=== PATIENT | male | born 1985 | race Caucasian/White ===

== ENCOUNTER 2017-03-05 00:29 | Emergency (ER) | payer MEDICARE ==
[~2017-03-05] VITALS: Ht 180.3 cm; Wt 78.0 kg
[2017-03-05 00:31] VITALS: BP 140/86; PULSE 107; RESP 16; TEMP 98; O2SAT 95
[2017-03-05] MEDS ORDERED: NAPROXEN 500 MG TAB PO ONE (00:45)
[2017-03-05] MEDS ORDERED: CYCLOBENZAPRINE HCL 10 MG TAB PO ONE (00:45)
[2017-03-05] MEDS ORDERED: CYCL1TAB29 PO (00:46)
[2017-03-05] MEDS ORDERED: DICL75TA PO (00:46)
[2017-03-05] MEDS ORDERED: RISP4TAB41 PO (00:53)
--- NOTE | 2017-03-05 00:57 | PD ---
HPI Chief Complaint: Back/ Neck Pain or Injury Time Seen by Provider: 00:54 Travel History International Travel<30 days: No Contact w/Intl Traveler<30days: No Traveled to known affect area: No History of Present Illness HPI 31-year-old white male presents to emergency Department with complaints of lower back pain for the past month. He states the pain is progressively getting worse. He states that he had back pain in the past he has not had a to this degree. 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 The patient reports drinking 6-9 beers a day to help with the pain. He states that he's been medicating himself with alcohol but this evening now is not helping. He denies any direct trauma. No acute bowel or bladder changes. He states the pain is more in the lower back on the right side. No recent illness. No focal numbness, tingling or weakness. PFSH Past Medical History Medical History: Denies Significant Hx Tetanus Vaccination: < 5 Years Past Surgical History Surgical History: No Previous Surgery Social History Alcohol Use: Yes Tobacco Use: Yes Allergies-Medications (Allergen,Severity, Reaction): Coded Allergies: No Known Allergies (Unverified , 03/05/17) Reported Meds & Prescriptions Reported Meds & Active Scripts Active Flexeril (Cyclobenzaprine HCl) 10 Mg Tab 10 Mg PO TID Diclofenac Sodium DR (Diclofenac Sodium) 75 Mg Tabdr 75 Mg PO BID Reported Risperdal (Risperidone) 4 Mg Tab 4 Mg PO Q12HR Review of Systems Except as stated in HPI: all other systems reviewed are Neg Physical Exam Narrative GENERAL: Well-developed, well-nourished in no apparent distress. Nontoxic appearing. HEAD: Normocephalic, atraumatic. EYES: Pupils equal round and reactive. Extraocular motions intact. No scleral icterus. No injection or drainage. ENT: Nose clear. Throat without erythema, tonsillar hypertrophy or exudate. Uvula midline. Airway patent. NECK: Trachea midline. Supple, nontender, moves head freely. No central bony tenderness or spasm. CARDIOVASCULAR: Regular rate and rhythm without murmurs, gallops, or rubs. RESPIRATORY: Clear to auscultation. Breath sounds equal bilaterally. No wheezes , rales, or rhonchi. GASTROINTESTINAL: Abdomen soft, non-tender, nondistended. No hepato-splenomegaly , or palpable masses. No guarding. EXTREMITIES: No clubbing, cyanosis, or edema. No joint tenderness. BACK: No central bony tenderness to palpation of dorsal lumbar spine. Without deformity. No flank tenderness. Patient is able to stand on his tiptoes and heels. Bends forward to 70. No gross spasm. No saddle anesthesia. Patient has paraspinal tenderness bilaterally but more so on the right paraspinal spine. No pain in the SI joint. Negative straight leg raise bilaterally. Intact sensation distally. Good pulses. NEUROLOGICAL: Awake, alert and oriented x 3 .Cranial nerves grossly intact. Motor and sensory grossly within normal limits. Normal speech. Data Data Last Documented VS Vital Signs Date Time Temp Pulse Resp B/P Pulse Ox O2 Delivery O2 Flow Rate FiO2 03/05/17 00:31 98.0 107 16 140/86 95 Orders Spine, Lumbar - Ltd (Ap & Lat) (03/05/17 00:45) Naproxen (Naprosyn) (03/05/17 00:45) Cyclobenzaprine (Flexeril) (03/05/17 00:45) MDM Medical Decision Making Medical Screen Exam Complete: Yes Emergency Medical Condition: Yes Medical Record Reviewed: Yes Interpretation(s) Lumbar spine: Negative for acute bony injury. Differential Diagnosis MDM: High Differential diagnoses: Fracture, sprain, strain, HNP, nerve or vascular injury , epidural abscess, pilonidal cyst Narrative Course Patient given Naprosyn 500 and fluctuant 10 mg by mouth. Patient has requested an X-ray of the lumbar spine. Diagnosis Primary Impression: Lower back pain Qualified Code: M54.5 - Acute low back pain without sciatica, unspecified back pain laterality Patient Instructions: General Instructions Additional Instructions: Rest. Ice or heat whichever seems to help best. Flexeril and Voltaren. Follow-up with a primary care doctor in one week. Return to the ER for emergencies. Med/Other Pt SpecificInfo: Prescription(s) given Scripts Cyclobenzaprine (Flexeril)10 Mg Tab10 Mg PO TID #30 TAB Prov:Hawa Giles MD 03/05/[address] 75 Mg Tabdr75 Mg PO BID #20 TAB Prov:Hawa Giles MD 03/05/17 Disposition: 01 DISCHARGE HOME Condition: Stable Sheldon Mccarthy Mar 05, 2017 00:57
--- NOTE | 2017-03-05 01:28 | RADRPT ---
EXAM DATE/TIME: 03/05/2017 01:06 [facility] COMPARISON: No previous studies available for comparison. INDICATIONS : Right lumbar spine. No known injury. MEDICAL HISTORY : None. SURGICAL HISTORY : None. ENCOUNTER: Initial ACUITY: 2 weeks PAIN SCORE: 9/10 LOCATION: Right lumbar spine FINDINGS: Two view examination was performed. There are five non-rib bearing vertebral bodies. The vertebral bodies are in normal alignment without evidence of subluxation or scoliosis. The disc spaces are yenni ntained. The pedicles are intact. Bony mineralization is normal. No fracture is identified. CONCLUSION: Normal examination for a patient of this age. Kris Rodríguez MD on March 05, 2017 at 1:26 Board Certified Radiologist. This report was verified electronically.
== END 2017-03-05 02:02 | disposition home or self-care (01) ==
LOC: NEPK 00:29
DX: M54.5 Low back pain (principal); Z72.0 Tobacco use
CPT/HCPCS: 72100; 99283